=== PATIENT | female | born 1960 | race Caucasian/White ===

== ENCOUNTER 2016-11-22 21:07 | Observation (INO) | payer BC ==
--- NOTE | 2016-11-22 21:10 | PDOC ---
History of Present Illness - General History Source: Patient Exam Limitations: No Limitations <Lauren Chung - Last Filed: 11/22/16 22:05> - General History Source: Patient Exam Limitations: No Limitations <Kylah Rogers - Last Filed: 11/22/16 23:15> - General Chief Complaint: Chest Pain Stated Complaint: CHEST PAIN Time Seen by Provider: 11/22/16 21:09 - History of Present Illness Initial Comments: 11/22/16 22:05 The patient is a 56 year old female, with significant past medical history of HTN, TIA (10 years ago) , who presents today complaining of 6 hours of chest pain. She explains that the pain started as a dull ache in the mid chest. Around 7:30pm, she experienced an episode of crushing chest pain, 8/10 in severity, that made her wince and took her breath away. She notes that the chest pain radiated to deep in her back between her shoulder blades. She notes that she had simultaneous right upper arm soreness and nausea. At this time, the pain has lessened to a 4/10 in severity. She reports that she has severe hypertension, which is being managed with Benicar, Norvasc, and Bystolic. She notes that she also has GERD; however, this chest pain is not similar to GERD pain. Denies headache, lightheadedness. Denies vomiting. Denies SOB, palpitations, sweats. Allergies: none reported Social Hx: No tobacco use. (Lauren Chung) Past History <Lauren Chung - Last Filed: 11/22/16 22:05> <Kylah Rogers - Last Filed: 11/22/16 23:15> - Past Medical History Allergies/Adverse Reactions: Allergies Allergy/AdvReac Type Severity Reaction Status Date / Time No Known Allergies Allergy Unverified 11/22/16 21:12 Home Medications: Ambulatory Orders Amlodipine Besylate [Norvasc -] 10 mg PO DAILY 11/22/16 Hydralazine HCl PRN 11/22/16 Nebivolol HCl [Bystolic] 10 mg PO DAILY 11/22/16 Olmesartan Medoxomil [Benicar (Nf)] 20 mg PO DAILY 11/22/16 Review of Systems <Lauren Chung - Last Filed: 11/22/16 22:05> <Kylah Rogers - Last Filed: 11/22/16 23:15> - Review of Systems Comments:: 11/22/16 22:06 GENERAL/CONSTITUTIONAL: No: fever, chills, weakness, loss of appetite. HEAD, EYES, EARS, NOSE AND THROAT: No: change in vision, ear pain, discharge, sore throat, throat swelling. CARDIOVASCULAR: +chest pain that radiates to the back. No: lightheadedness, palpitations, syncope RESPIRATORY: No: cough, shortness of breath, wheezing, hemoptysis, stridor. GASTROINTESTINAL:+nausea. No: vomiting, abdominal cramping, diarrhea, rectal bleeding, constipation. GENITOURINARY: No: dysuria, hematuria, frequency, urgency, flank pain. MUSCULOSKELETAL: No: neck pain, joint pain, muscle swelling or pain SKIN: No: lesions, pallor, rash or easy bruising. NEUROLOGIC: No: headache, vertigo, paresthesias, weakness (Lauren Chung) *Physical Exam <Lauren Chung - Last Filed: 11/22/16 22:05> <Kylah Rogers - Last Filed: 11/22/16 23:15> - Vital Signs Last Vital Signs Temp Pulse Resp BP Pulse Ox 98.2 F 78 17 193/120 100 11/22/16 21:19 11/22/16 22:30 11/22/16 22:30 11/22/16 22:30 11/22/16 22:30 - Physical Exam Comments: 11/22/16 22:06 GENERAL: The patient is in no acute distress. EYES: PERRLA, EOMI, sclera anicteric, conjunctiva clear. ENT: Ears normal, nares patent, oropharynx clear without exudates. Moist mucous membranes. NECK: Normal range of motion, supple without lymphadenopathy, JVD, or masses. LUNGS: Breath sounds equal, clear to auscultation bilaterally. No wheezes, and no crackles. HEART:Regular rate and rhythm, normal S1 and S2 without murmur, rub or gallop. ABDOMEN: Soft, nontender, normoactive bowel sounds. No guarding, no rebound. EXTREMITIES: Normal range of motion, no edema. No clubbing or cyanosis. No erythema, or tenderness. NEUROLOGICAL: Cranial nerves II through XII grossly intact. Normal speech. No focal neurological deficits. MUSCULOSKELETAL: Back nontender to palpation, no CVA tenderness SKIN: Warm, Dry, normal turgor, no rashes or lesions noted. (Lauren Chung) Heart Score/ECG Review - History History: Moderately suspicious - Electrocardiogram EKG: Normal - Age Age: 45-65 - Risk Factors Risk Factors Heart Score: Yes Hx Hypertension Based on the list above the patient has:: 1-2 risk factors - Troponin Troponin: </= normal limit - Score Heart Score - Total: 3 #1 ECG reviewed & interpreted by me at: 21:54 General ECG Interpretation: Sinus Rhythm, Normal Rate, Normal Intervals, No acute ischemic changes <Kylah Rogers - Last Filed: 11/22/16 23:15> ED Treatment Course - LABORATORY CBC & Chemistry Diagram: 11/22/16 21:36 11/22/16 21:36 <Lauren Chung - Last Filed: 11/22/16 22:05> - LABORATORY CBC & Chemistry Diagram: 11/22/16 21:36 11/22/16 21:36 <Kylah Rogers - Last Filed: 11/22/16 23:15> - ADDITIONAL ORDERS Additional order review: Laboratory Results 11/22/16 11/22/16 11/22/16 21:40 21:36 21:36 INR 0.91 L Sodium 138 Potassium 3.3 L Chloride 103 Carbon Dioxide 25 Anion Gap 10 BUN 17 Creatinine 0.8 Creat Clearance w eGFR > 60 Random Glucose 84 Calcium 9.5 Magnesium 1.9 Total Bilirubin 0.3 AST 18 ALT 16 Alkaline Phosphatase 73 Creatine Kinase 66 Cancelled Troponin I < 0.03 L Cancelled Total Protein 7.2 Albumin 4.3 11/22/16 21:36 RBC 4.80 MCV 92.0 MCHC 34.3 RDW 13.3 MPV 7.9 Neutrophils % 59.9 Lymphocytes % 28.5 Monocytes % 7.0 Eosinophils % 1.3 Basophils % 3.3 H - RADIOLOGY Radiology Studies Ordered: Category Date Time Status CHEST X-RAY PORTABLE* [RAD] Stat Radiology 11/22/16 21:20 Taken - Medications Given in the ED: ED Medications Discontinued Medications Generic Name Dose Route Start Last Admin Trade Name Freq PRN Reason Stop Dose Admin Aspirin 162 mg 11/22/16 21:20 11/22/16 21:36 Asa - PO 11/22/16 21:21 162 mg ONCE ONE Administration Hydralazine HCl 10 mg 11/22/16 22:35 11/22/16 22:53 Apresoline Injection - IVPUSH 11/22/16 22:36 10 mg ONCE ONE Administration Pantoprazole Sodium 40 mg/ 100 mls @ 200 mls/hr 11/22/16 22:03 11/22/16 22:12 Sodium Chloride IVPB 11/22/16 22:32 200 mls/hr ONCE ONE Administration Nitroglycerin 0.4 mg 11/22/16 21:53 11/22/16 21:56 Nitrostat - SL 11/22/16 21:54 0.4 mg ONCE ONE Administration Medical Decision Making <Lauren Chung - Last Filed: 11/22/16 22:05> <Kylah Rogers - Last Filed: 11/22/16 23:15> - Medical Decision Making 11/22/16 21:10 A portion of this note was documented by scribe services under my direction. I have reviewed the details of the note, within reason, and agree with the documentation with the following case summary and management plan written by me. Nursing documentation reviewed and incorporated into medical decision making 11/22/16 21:54 This is a 56-year-old female with a history of hypertension who presents emergency department with a complaint of crushing chest pain. Patient states her symptoms initially began at 4 PM, or mild and escalated over the course of the day. Pt was sexually active with her just before going out to dinner and noted an increase in her chest pressure At dinner, approximately 7:30 she developed severe crushing substernal chest pain. Pain was associated with nausea, no vomiting. No shortness of breath, no palpitations. No exertional symptoms. When the pain was its worse, it was rated 8/10, with radiation to her back between her scapula. Pain is currently a 4/10. No prior episodes like this. She has a history of hypertension for which she takes 3 agents, and hydralazine when necessary. Last stress test was a possibly 3 years ago. Last endoscopy was 3 years ago. Patient has a history of GERD and felt that the symptoms were not consistent with this Differential includes cardiac ischemia, pe, asthma exacerbation, pneumonia, pneumothorax, pleural effusion, costochondritis, pericarditis, GERD. 11/22/16 22:09 Given SNL 0.4 mg Chest pain 2 will give repeat SNL 0.4mg and re assess Will plan to CTA r/o dissection Will admit 11/22/16 22:21 Laboratory Tests 11/22/16 11/22/16 21:36 21:40 WBC 7.5 Hgb 15.1 Hct 44.2 Plt Count 271 Troponin I < 0.03 L I have explained to this patient my concern with her complaint of chest pain radiating to the back, she will need a CTA Pt does not want this done Currently she is chest pain free Troponin is negative He spouse does not this she should stay in the hospital I have explained that she is free to leave but will have to leave against medical advise 11/22/16 22:48 Pt asked again if she would consent for CTA Pt refused (Kylah Rogers) *DC/Admit/Observation/Transfer <Lauren Chung - Last Filed: 11/22/16 22:05> - Discharge Dispostion Admit: Yes <Kylah Rogers - Last Filed: 11/22/16 23:15> Diagnosis at time of Disposition: Chest pain Qualifiers: Chest pain type: unspecified Qualified Code(s): R07.9 - Chest pain, unspecified - Discharge Dispostion Condition at time of disposition: Stable - Referrals Referrals: STAFF,NOT ON [Primary Care Provider] - - Attestations Scribe Attestion: 11/22/16 22:06 Documentation prepared by CHRISTAL Botello, acting as medical office professional instructor for Kylah Rogers MD. (Lauren Chung)
[2016-11-22] MEDS ORDERED: ASPIRIN 81 MG CHEWABLE TABLETS PO ONE (21:20)
[2016-11-22 21:21] VITALS: BMI 21.7
[2016-11-22] MEDS ORDERED: ASPIRIN 81 MG CHEWABLE TABLETS ONE (21:24)
[2016-11-22 21:47] LABS: BASOPHIL 3.3 % (0-2.0); EOSINOPHIL 1.3 % (0-4.5); MCH 31.5 pg (25.7-33.7); MCHC 34.3 g/dl (32.0-36.0); MEAN PLT VOLUME 7.9 fl (7.5-11.1); NEUTROPHILS 59.9 % (42.8-82.8); PLATELET COUNT 271 K/MM3 (134-434); RDW 13.3 % (11.6-15.6); WHITE BLOOD COUNT 7.5 K/mm3 (4.0-10.8)
[2016-11-22] MEDS ORDERED: NITROGLYCERIN SUBLINGUAL 1/150 0.4 MG TAB SL ONE ×2 (21:53→22:08)
[2016-11-22] MEDS ORDERED: NITROGLYCERIN SUBLINGUAL 1/150 0.4 MG TAB ONE ×2 (21:55→22:13)
[2016-11-22 22:00] LABS: INR 0.91 (0.82-1.09); PROTHROMBIN TIME (PATIENT) 10.2 SEC (10.2-13.0)
[2016-11-22 22:02] LABS: CPK 66 IU/L (26-192)
[2016-11-22 22:03] LABS: ALBUMIN 4.3 g/dl (3.5-5.0); ALK PHOS 73 U/L (32-92); ANION GAP 10 (8-16); BILIRUBIN,TOTAL 0.3 mg/dl (0.2-1.0); CALCIUM 9.5 mg/dl (8.4-10.2); CO2 25 mmol/L (22-28); CREATININE 0.8 mg/dl (0.6-1.3); GLUCOSE,RANDOM 84 mg/dl (74-106); MAGNESIUM 1.9 mg/dL (1.8-2.4); SGOT/AST 18 U/L (10-42); SGPT/ALT 16 U/L (10-40); TOT PROT 7.2 g/dl (6.4-8.3)
[2016-11-22] MEDS ORDERED: PANTOPRAZOLE SODIUM 40 MG in SODIUM CHLORIDE 100 ML IVPB ONE (22:03)
[2016-11-22] MEDS ORDERED: PANTOPRAZOLE SODIUM 40 MG VIAL ONE (22:08)
[2016-11-22 22:15] LABS: TROPONIN I (DFP) < 0.03 ng/ml (0.03-0.50)
[2016-11-22] MEDS ORDERED: hydrALAZINE HCL 10 MG TABLET PO ONE (22:34)
[2016-11-22] MEDS ORDERED: hydrALAZINE HCL 20 MG/ML VIAL IVPUSH ONE (22:35)
[2016-11-22] MEDS ORDERED: hydrALAZINE HCL 20 MG/ML VIAL ONE (22:52)
--- NOTE | 2016-11-22 23:52 | HP ---
CHIEF COMPLAINT: Chest Pain PCP: None HISTORY OF PRESENT ILLNESS: This is a pleasant 56 y/o woman with a past medical history of Hypertension (10 years ago), TIA (10 yrs ago, no residual deficits), GERD, Hypercholesterolemia ( no meds). who presents to the emergency department with chest pain since 4pm this evening. The patient reports having crushing substernal chest pain post coital, radiating to her back, between her shoulder blades, with nausea. She reports while at dinner, the pain became a dull ache that was constant- which she attributed to possible "GERD". Patient denies fever, chills, cough, SOB, dizziness, FAY, AP, V/D, constipation,. dysuria. Patient reports having a significant familial Cardiac history. 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 Family History: Father: Prolonged QT Syndrome Mother: Sick sinus Syndrome Sister: Sudden Cardiac Aunt: Breast Ca Allergies No Known Allergies Allergy (Unverified 11/22/16 21:12) HOME MEDICATIONS: Home Medications Medication Instructions Recorded Amlodipine Besylate [Norvasc -] 10 mg PO DAILY 11/22/16 Hydralazine HCl PRN 11/22/16 Nebivolol HCl [Bystolic] 10 mg PO DAILY 11/22/16 Olmesartan Medoxomil [Benicar (Nf)] 20 mg PO DAILY 11/22/16 REVIEW OF SYSTEMS CONSTITUTIONAL: Absent: fever, chills, diaphoresis, generalized weakness, malaise, loss of appetite, weight change HEENT: Absent: rhinorrhea, nasal congestion, throat pain, throat swelling, difficulty swallowing, mouth swelling, ear pain, eye pain, visual changes CARDIOVASCULAR: chest pain Absent: chest pain, syncope, palpitations, irregular heart rate, lightheadedness , peripheral edema RESPIRATORY: Absent: cough, shortness of breath, dyspnea with exertion, orthopnea, wheezing, stridor, hemoptysis GASTROINTESTINAL: nausea Absent: abdominal pain, abdominal distension, vomiting, diarrhea, constipation, melena, hematochezia GENITOURINARY: Absent: dysuria, frequency, urgency, hesitancy, hematuria, flank pain, genital pain MUSCULOSKELETAL: back pain Absent: myalgia, arthralgia, joint swelling, neck pain SKIN: Absent: rash, itching, pallor HEMATOLOGIC/IMMUNOLOGIC: Absent: easy bleeding, easy bruising, lymphadenopathy, frequent infections ENDOCRINE: Absent: unexplained weight gain, unexplained weight loss, heat intolerance, cold intolerance NEUROLOGIC: Absent: headache, focal weakness or paresthesias, dizziness, unsteady gait, seizure, mental status changes, bladder or bowel incontinence PSYCHIATRIC: Absent: anxiety, depression, suicidal or homicidal ideation, hallucinations. PHYSICAL EXAMINATION Vital Signs - 24 hr 11/22/16 11/22/16 11/22/16 21:19 21:48 22:14 Temperature 98.2 F Pulse Rate 120 H Pulse Rate [ 92 H 75 Apical] Respiratory 16 18 18 Rate Blood Pressure 195/130 Blood Pressure 186/121 147/105 [Right Arm] O2 Sat by Pulse 99 99 100 Oximetry (%) 11/22/16 11/22/16 11/22/16 22:30 23:15 23:46 Temperature 97.9 F Pulse Rate 91 H Pulse Rate [ 78 99 H Apical] Respiratory 17 16 18 Rate Blood Pressure 163/90 Blood Pressure 193/120 181/99 [Right Arm] O2 Sat by Pulse 100 99 99 Oximetry (%) GENERAL: Awake, alert, and fully oriented, in no acute distress. HEAD: Normal with no signs of trauma. EYES: Pupils equal, round and reactive to light, extraocular movements intact, sclera anicteric, conjunctiva clear. No lid lag. EARS, NOSE, THROAT: Ears normal, nares patent, oropharynx clear without exudates. Moist mucous membranes. NECK: Normal range of motion, supple without lymphadenopathy, JVD, or masses. LUNGS: Breath sounds equal, clear to auscultation bilaterally. No wheezes, and no crackles. No accessory muscle use. HEART: Regular rate and rhythm, normal S1 and S2 without murmur, rub or gallop. ABDOMEN: Soft, nontender, not distended, normoactive bowel sounds, no guarding, no rebound, no masses. No hepatomegaly or splenomegaly. MUSCULOSKELETAL: Normal range of motion at all joints. No bony deformities or tenderness. No CVA tenderness. UPPER EXTREMITIES: 2+ pulses, warm, well-perfused. No cyanosis. No clubbing. No peripheral edema. LOWER EXTREMITIES: 2+ pulses, warm, well-perfused. No calf tenderness. No peripheral edema. NEUROLOGICAL: Cranial nerves II-XII intact. Normal speech. Normal gait. PSYCHIATRIC: Cooperative. Good eye contact. Appropriate mood and affect. SKIN: Warm, dry, normal turgor, no rashes or lesions noted, normal capillary refill. Laboratory Results - last 24 hr 11/22/16 11/22/16 11/22/16 21:36 21:36 21:36 WBC 7.5 RBC 4.80 Hgb 15.1 Hct 44.2 MCV 92.0 MCH 31.5 MCHC 34.3 RDW 13.3 Plt Count 271 MPV 7.9 Neutrophils % 59.9 Lymphocytes % 28.5 Monocytes % 7.0 Eosinophils % 1.3 Basophils % 3.3 H INR 0.91 L Sodium 138 Potassium 3.3 L Chloride 103 Carbon Dioxide 25 Anion Gap 10 BUN 17 Creatinine 0.8 Creat Clearance w eGFR > 60 Random Glucose 84 Calcium 9.5 Magnesium 1.9 Total Bilirubin 0.3 AST 18 ALT 16 Alkaline Phosphatase 73 Creatine Kinase Cancelled Troponin I Cancelled Total Protein 7.2 Albumin 4.3 11/22/16 21:40 WBC RBC Hgb Hct MCV MCH MCHC RDW Plt Count MPV Neutrophils % Lymphocytes % Monocytes % Eosinophils % Basophils % INR Sodium Potassium Chloride Carbon Dioxide Anion Gap BUN Creatinine Creat Clearance w eGFR Random Glucose Calcium Magnesium Total Bilirubin AST ALT Alkaline Phosphatase Creatine Kinase 66 Troponin I < 0.03 L Total Protein Albumin ASSESSMENT/PLAN: This is a 56 y/o woman with a PMHx of: HTN, TIA (10 yrs ago), Hypercholesterolemia (no med). Placed on Tele Observation Chest Pain r/o ACS, Hypertensive Urgency for further evaluation of their emergent condition. Problem List - Problem (1) Chest pain Assessment/Plan: - r/o ACS - HEART Score 4 - Continue cardiac monitoring - ASA, Ntg sl given in ED - Cardiac Enzyme neg x1 - Serial Enzymes x2 - EKG- NSR no other study avail to compare - Repeat EKG in am - Appreciate Cardiology Consult - Continue Asa, BB - Lipid Panel, Hgb A1C in am - Monitor BMP - Echo - Stress Test Code(s): R07.9 - CHEST PAIN, UNSPECIFIED Qualifiers: Chest pain type: unspecified Qualified Code(s): R07.9 - Chest pain, unspecified (2) Hypertensive urgency Assessment/Plan: - Likely secondary to ACS - Initial BP 193/120~160/90 - Continue cardiac monitoring - No indication of end organ damage - Hydralazine, Ntg given in ED - Monitor renal function - Continue Norvasc, Bystolic, Benicar - Hydralazine prn Code(s): I16.0 - HYPERTENSIVE URGENCY (3) Hypokalemia Assessment/Plan: - K 3.3 - Will give Kcl Code(s): E87.6 - HYPOKALEMIA (4) DVT prophylaxis Assessment/Plan: - OOB - SCDs - Consider AC if LOS > 48 hrs Code(s): [id number] - Visit type - Emergency Visit Emergency Visit: Yes ED Registration Date: 11/22/16 Care time: The patient presented to the Emergency Department on the above date and was hospitalized for further evaluation of their emergent condition. - New Patient This patient is new to me today: Yes Date on this admission: 11/22/16 - Critical Care Critical Care patient: No
[2016-11-23] MEDS ORDERED: POTASSIUM CHLORIDE TABS 20 MEQ TABLET.ER (FP) PO ONE (00:13)
[2016-11-23] MEDS ORDERED: NITROGLYCERIN SUBLINGUAL 1/150 0.4 MG TAB SL PRN (01:50)
[2016-11-23 05:45] LABS: TROPONIN I (DFP) < 0.03 ng/ml (0.03-0.50)
[2016-11-23 05:46] LABS: CPK 53 IU/L (26-192)
--- NOTE | 2016-11-23 07:54 | CON.CARD ---
Consult Consult Specialty:: cardiology Referred by:: hospitalist Reason for Consultation:: cp - History of Present Illness Chief Complaint: cp History of Present Illness: 56 yo female here with cp. lives in [place], visiting boyfriend here. yest around 4pm began noticing substernal discomfort which was persistent, non- radiating and not assctd with sob, diaph, LH. mild nausea noted with that. not positional/pleuritic. it persisted all day, went out to dinner with BF and the pain intensified. around 7:30 pm it became intense "crushing" feeling radiating through to mid- scapular region, no "tearing" sensation. this subsided on its own after approx 15 min. but the pain did not eventually resolve until some point last night after arrived in ER. then returned over night transiently. never had this before. not like her GERD sx's (which are fire-like burning in epigastrium). 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 ...: No - Alcohol/Substance Use Hx Alcohol Use: Yes (OCCASIONAL) - Smoking History Smoking history: Never smoked Home Medications - Allergies Allergies/Adverse Reactions: Allergies Allergy/AdvReac Type Severity Reaction Status Date / Time No Known Allergies Allergy Unverified 11/22/16 21:12 - Home Medications Home Medications: Ambulatory Orders Amlodipine Besylate [Norvasc -] 10 mg PO DAILY 11/22/16 Hydralazine HCl PRN 11/22/16 Nebivolol HCl [Bystolic] 10 mg PO DAILY 11/22/16 Olmesartan Medoxomil [Benicar (Nf)] 20 mg PO DAILY 11/22/16 Review of Systems - Review of Systems Constitutional: denies: Chills, Fever Eyes: denies: Eye Pain HENT: denies: Nasal Congestion Neck: denies: Stiffness Cardiovascular: denies: Palpitations Respiratory: denies: Orthopnea, PND Gastrointestinal: denies: Diarrhea, Rectal Bleeding Genitourinary: denies: Burning, Hematuria Musculoskeletal: denies: Muscle Pain Integumentary: denies: Rash Neurological: denies: Numbness, Seizure, Syncope Endocrine: denies: Excessive Sweating Hematology/Lymphatic: denies: Excessive Bleeding Vital Signs: Vital Signs Temperature 97.7 F 11/23/16 06:00 Pulse Rate 87 11/23/16 06:00 Respiratory Rate 18 11/23/16 06:02 Blood Pressure 150/105 11/23/16 06:02 O2 Sat by Pulse Oximetry (%) 97 11/23/16 06:00 Constitutional: Yes: Well Nourished, No Distress Eyes: No: Sclera Icterus HENT: No: Nasal Congestion Neck: No: Decreased ROM Respiratory: Yes: CTA Bilaterally. No: Accessory Muscle Use, Rales, Wheezes Gastrointestinal: Yes: Normal Bowel Sounds. No: Distention, Hepatomegaly, Palpable Mass, Tenderness Cardiovascular: Yes: Regular Rate and Rhythm JVD: No Carotid Bruit: No PMI: Non-Displaced Heart Sounds: Yes: S1, S2. No: Gallop Murmur: No: Systolic Murmur, Diastolic Murmur Musculoskeletal: Yes: Other (No kyphosis) Extremities: No: Cold, Cyanosis Edema: No Peripheral Pulses: 2+ Left Carotid, 2+ Right Carotid, 2+ Left Doralis Pedis, 2+ Right Dorsalis Pedis Integumentary: No: Jaundice Neurological: Yes: Alert, Oriented (x3) Psychiatric: No: Agitated - Other Data Labs, Other Data: INR, PTT INR 0.91 (0.82-1.09) L 11/22/16 21:36 Troponin, BNP 11/23/16 01:26 Troponin I < 0.03 L Troponin, BNP 11/23/16 01:26 Troponin I < 0.03 L Imaging - Results Chest X-ray: Report Reviewed, Image Reviewed Assessment/Plan EKG 11/22: NSR, nl axis, nl intervals incl QT; no path q's; NSST-T V4-5 EKG 11/23: no change (QTc manually approx 428 msec) CXR: clear lungs and pleura; no mediastinum widening; ? RA enlargement telem: NSR with APCs, no events chest pain: -sx description not likely to represent m-skel or GERD etiology -? related to uncontrolled HTN, though pt describes typical hi bp sx's are very different (i.e. head pressure, which she did not have yesterday) -? related to chronically high mental stress (stressful job) with nonspecific cp syndrome -history is concerning for possible unstable angina in pt with uncontrolled HTN and prior TIA -ecg x2 no ischemic changes -troponins neg thus far (only 4 hrs apart), f/u this am's value -rec persantine nuclear stress test in am -start ASA, cont bystolic, defer statin for now HTN: -not well controlled, with both sbp and dbp moderate to severely elevated at times -? what is pt's baseline bp--pt states usually 130s/80s -? anxiety contributing to present readings -did not yet receive am meds--observe bp trend HPL: -managed with diet alone -she says was high at time of TIA many yrs ago, now normal without meds family h/o congenital long QT syndrome: -her ECG with normal QT interval, her father had + gene test and pt has been tested and is negative she says (reliable historian) -no personal h/o unexplained syncope or VT
[2016-11-23 08:36] LABS: BASOPHIL 1.4 % (0-2.0); EOSINOPHIL 1.4 % (0-4.5); MCH 30.3 pg (25.7-33.7); MCHC 32.8 g/dl (32.0-36.0); MEAN CELL VOLUME 92.4 fl (80-96); MEAN PLT VOLUME 8.5 fl (7.5-11.1); NEUTROPHILS 54.9 % (42.8-82.8); PLATELET COUNT 245 K/MM3 (134-434); RDW 13.4 % (11.6-15.6); WHITE BLOOD COUNT 6.4 K/mm3 (4.0-10.8)
[2016-11-23 08:54] LABS: ANION GAP 8 (8-16); CALCIUM 9.1 mg/dl (8.4-10.2); CO2 23 mmol/L (22-28); CPK 47 IU/L (26-192); CREATININE 0.7 mg/dl (0.6-1.3); GLUCOSE,RANDOM 78 mg/dl (74-106); PHOSPHOROUS 3.6 mg/dl (2.5-4.6)
[2016-11-23 08:59] LABS: CHOLESTEROL 173 mg/dl
[2016-11-23 09:35] LABS: TROPONIN I (DFP) < 0.03 ng/ml (0.03-0.50)
[2016-11-23] MEDS ORDERED: VALSARTAN 160 MG TABLET (UD) PO SCH (10:00)
[2016-11-23] MEDS: VALSARTAN 160 MG TABLET (UD) PO SCH (10:13)
[2016-11-23] MEDS: NEBIVOLOL 10 MG TABLET (FP) PO SCH (10:13)
[2016-11-23] MEDS: amLODIPine BESYLATE 10 MG TABLET (FP) PO SCH (10:13)
[2016-11-23] MEDS: ASPIRIN 81 MG CHEWABLE TABLETS PO SCH (10:13)
--- NOTE | 2016-11-23 14:35 | PN ---
Physical Exam: SUBJECTIVE: Patient seen and examined at bedside. Chest pain is resolved. Resolved headache. OBJECTIVE: Vital Signs Period Temp Pulse Resp BP Sys/Treviño Pulse Ox Last 24 Hr 97.7 F-98.0 F 85-99 18-18 150-184/90-111 96-99 GENERAL: The patient is awake, alert, and fully oriented, in no acute distress. LUNGS: Breath sounds equal, clear to auscultation bilaterally, no wheezes, no crackles, no accessory muscle use. HEART: Regular rate and rhythm, S1, S2 without murmur, rub or gallop. Telemetry reviewed. No events or ectopy noted. ABDOMEN: Soft, nontender, nondistended, normoactive bowel sounds, no guarding, no rebound. EXTREMITIES: 2+ pulses, warm, well-perfused, no edema. NEUROLOGICAL: Cranial nerves II through XII grossly intact. Normal speech, gait not observed. PSYCH: Normal mood, normal affect. SKIN: Warm, dry, normal turgor, no rashes or lesions noted Laboratory Results - last 24 hr 11/23/16 11/23/16 11/23/16 01:26 06:00 06:00 WBC 6.4 RBC 4.71 Hgb 14.3 Hct 43.6 MCV 92.4 MCH 30.3 MCHC 32.8 RDW 13.4 Plt Count 245 MPV 8.5 Neutrophils % 54.9 Lymphocytes % 33.6 Monocytes % 8.7 Eosinophils % 1.4 Basophils % 1.4 Sodium 137 Potassium 4.0 D Chloride 106 Carbon Dioxide 23 Anion Gap 8 BUN 14 Creatinine 0.7 Random Glucose 78 Hemoglobin A1c % Calcium 9.1 Phosphorus 3.6 Creatine Kinase 53 47 Troponin I < 0.03 L < 0.03 L Triglycerides Cholesterol Total LDL Cholesterol HDL Cholesterol 11/23/16 11/23/16 06:00 06:00 WBC RBC Hgb Hct MCV MCH MCHC RDW Plt Count MPV Neutrophils % Lymphocytes % Monocytes % Eosinophils % Basophils % Sodium Potassium Chloride Carbon Dioxide Anion Gap BUN Creatinine Random Glucose Hemoglobin A1c % 5.7 Calcium Phosphorus Creatine Kinase Troponin I Triglycerides 84 Cholesterol 173 Total LDL Cholesterol 97 HDL Cholesterol 59 Active Medications Generic Name Dose Route Start Last Admin Trade Name Freq PRN Reason Stop Dose Admin Amlodipine Besylate 10 mg 11/23/16 10:00 11/23/16 10:13 Norvasc - PO 10 mg DAILY LORENE Administration Aspirin 81 mg 11/23/16 10:00 11/23/16 10:13 Asa - PO 81 mg DAILY LORENE Administration Nebivolol 10 mg 11/23/16 10:00 11/23/16 10:13 Bystolic - PO 10 mg DAILY LORENE Administration Nitroglycerin 0.4 mg 11/23/16 01:50 Nitrostat - SL Q5M PRN FOR CHEST PAIN Valsartan 320 mg 11/23/16 10:00 11/23/16 10:13 Diovan - PO 320 mg DAILY LORENE Administration ASSESSMENT/PLAN: A: 56yo woman with PMH HTN with resolved chest pain and HTN urgency P: 1. ACS - telemetry - trop (-) x3 - ASA - Bystolic - NTG prn - avoid caffeine - Stress test- pending - echo- pending - cholesterol ratio 2.9- low risk for cardiovascular disease 2. Hypertensive urgency - poorly controlled - Bystolic - Valsartan - Norvasc - Hydralazine 10mg now 3. Hypokalemia - resolved - BMP in AM 4. F/E/N - Low Na diet - replete prn 5. PPX - OOB Dispo- requires observation for her acute medical conditions Visit type - Emergency Visit Emergency Visit: Yes ED Registration Date: 11/22/16 Care time: The patient presented to the Emergency Department on the above date and was hospitalized for further evaluation of their emergent condition. - New Patient This patient is new to me today: No - Critical Care Critical Care patient: No
[2016-11-23] MEDS ORDERED: hydrALAZINE HCL 10 MG TABLET PO ONE (15:10)
[2016-11-24 09:08] LABS: BASOPHIL 0.7 % (0-2.0); EOSINOPHIL 1.9 % (0-4.5); MCH 30.6 pg (25.7-33.7); MCHC 33.7 g/dl (32.0-36.0); MEAN CELL VOLUME 90.9 fl (80-96); MEAN PLT VOLUME 8.4 fl (7.5-11.1); NEUTROPHILS 61.9 % (42.8-82.8); PLATELET COUNT 270 K/MM3 (134-434); RDW 13.7 % (11.6-15.6); WHITE BLOOD COUNT 5.4 K/mm3 (4.0-10.8)
[2016-11-24 09:10] LABS: ANION GAP 6 (8-16); CALCIUM 9.4 mg/dl (8.4-10.2); CO2 23 mmol/L (22-28); CREATININE 0.8 mg/dl (0.6-1.3); GLUCOSE,RANDOM 89 mg/dl (74-106)
[2016-11-24] MEDS ORDERED: WATER IVPB ONE (10:00)
[2016-11-24] MEDS ORDERED: DEXTROSE 5% IVPB ONE (10:00)
[2016-11-24] MEDS ORDERED: DIPYRIDAMOLE STRESS TEST IVPB ONE (10:00)
[2016-11-24] MEDS: amLODIPine BESYLATE 10 MG TABLET (FP) PO SCH (10:23)
[2016-11-24] MEDS: VALSARTAN 160 MG TABLET (UD) PO SCH (10:23)
[2016-11-24] MEDS: NEBIVOLOL 10 MG TABLET (FP) PO SCH (11:30)
--- NOTE | 2016-11-24 14:10 | PN ---
Progress Note (short form) - Note Progress Note: patient taken to [facility] for stress test prior to evaluation. Awaiting results for dispo.
[2016-11-24 14:36] VITALS: BP 141/95; PULSE 72; TEMP 98.8
[2016-11-24] MEDS: ASPIRIN 81 MG CHEWABLE TABLETS PO SCH (15:38)
--- NOTE | 2016-11-24 23:56 | DS ---
Physical Exam: SUBJECTIVE: Patient seen and examined at bedside. OBJECTIVE: Vital Signs Period Temp Pulse Resp BP Sys/Treviño Pulse Ox Last 24 Hr 98.3 F-98.8 F 72-80 16-18 134-180/89-130 98-99 PHYSICAL EXAM GENERAL: The patient is awake, alert, and fully oriented, in no acute distress. LUNGS: Breath sounds equal, clear to auscultation bilaterally, no wheezes, no crackles, no accessory muscle use. HEART: Regular rate and rhythm, S1, S2 without murmur, rub or gallop. Telemetry reviewed. No events or ectopy noted. ABDOMEN: Soft, nontender, nondistended, normoactive bowel sounds, no guarding, no rebound. EXTREMITIES: 2+ pulses, warm, well-perfused, no edema. NEUROLOGICAL: Cranial nerves II through XII grossly intact. Normal speech, gait not observed. PSYCH: Normal mood, normal affect. SKIN: Warm, dry, normal turgor, no rashes or lesions noted LABS Laboratory Results - last 24 hr 11/24/16 11/24/16 07:00 07:00 WBC 5.4 RBC 5.06 Hgb 15.5 H Hct 46.0 H MCV 90.9 MCH 30.6 MCHC 33.7 RDW 13.7 Plt Count 270 MPV 8.4 Neutrophils % 61.9 Lymphocytes % 27.4 Monocytes % 8.1 Eosinophils % 1.9 Basophils % 0.7 Sodium 136 Potassium 4.1 Chloride 107 Carbon Dioxide 23 Anion Gap 6 L BUN 14 Creatinine 0.8 Random Glucose 89 Calcium 9.4 HOSPITAL COURSE: Date of Admission:11/22/16 Date of Discharge: 11/24/16 Minutes to complete discharge: 35 Discharge Summary Reason For Visit: CHEST PAIN Hospital Course: This is a pleasant 56 y/o woman with a past medical history of Hypertension (10 years ago), TIA (10 yrs ago, no residual deficits), GERD, Hypercholesterolemia ( no meds). who presented to the emergency department with chest pain since 4pm this evening. The patient reported having crushing substernal chest pain post coital, radiating to her back, between her shoulder blades, with nausea. She reported while at dinner, the pain became a dull ache that was constant- which she attributed to possible "GERD". Patient denied fever, chills, cough, SOB, dizziness, FAY, AP, V/D, constipation,. dysuria. Patient reported having a significant familial Cardiac history. 1. ACS - telemetry - trop (-) x3 - continue ASA - Stress test (-). No EKG changes during exam. Normal blood pressure response. - echo- EF-66%, Normal SPECT scan - cholesterol ratio 2.9- low risk for cardiovascular disease 2. 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 Hypokalemia - resolved with 40mEq PO Condition: Stable - Instructions Diet, Activity, Other Instructions: FOLLOW UP WITH PRIMARY CARE PHYSICIAN IN 5 DAYS FOLLOW UP WITH DOPE FIRER IN 1 WEEK WELL BALANCED LOW SODIUM DIET NO CHANGES IN MEDICATIONS Referrals: Moose Estrada MD [Staff Physician] - 1 Week STAFF,NOT ON [Primary Care Provider] - 11/28/16 Disposition: HOME - Home Medications Comprehensive Discharge Medication List: Ambulatory Orders Amlodipine Besylate [Norvasc -] 10 mg PO DAILY 11/22/16 Hydralazine HCl PRN 11/22/16 Nebivolol HCl [Bystolic] 10 mg PO DAILY 11/22/16 Olmesartan Medoxomil [Benicar (Nf)] 20 mg PO DAILY 11/22/16 This patient is new to me today: No Emergency Visit: Yes ED Registration Date: 11/22/16 Care time: The patient presented to the Emergency Department on the above date and was hospitalized for further evaluation of their emergent condition. Critical Care patient: No - Discharge Referral Referred to [facility] Med P.C.: No
--- NOTE | 2016-11-25 14:06 | EKG ---
Test Reason : Blood Pressure : / mmHG Vent. Rate : 082 BPM Atrial Rate : 082 BPM P-R Int : 132 ms QRS Dur : 072 ms QT Int : 406 ms P-R-T Axes : 041 066 034 degrees QTc Int : 474 ms SINUS RHYTHM WITH PREMATURE ATRIAL COMPLEXES OTHERWISE NORMAL ECG WHEN COMPARED WITH ECG OF 22-NOV-2016 21:29, PREMATURE ATRIAL COMPLEXES ARE NOW PRESENT CLINICAL CORRELATION IS RECOMMENDED Confirmed by GRUPO RODRIGUEZ MD ([id number] on 11/25/2016 2:06:34 PM Referred By: DR BOONE Confirmed By:GRUPO RODRIGUEZ MD
--- NOTE | 2016-11-25 14:09 | EKG ---
Test Reason : Blood Pressure : / mmHG Vent. Rate : 088 BPM Atrial Rate : 088 BPM P-R Int : 130 ms QRS Dur : 070 ms QT Int : 356 ms P-R-T Axes : 053 069 055 degrees QTc Int : 430 ms SUBOPTIMAL TRACING, BASE LINE ARTIFACTS ATRIAL RHYTHM IS UNCERTAIN, PROBABLE SINUS RTYTHM. REPEAT EKG IF CLINICALLY INDICATED NO PREVIOUS ECGS AVAILABLE Confirmed by GRUPO RODRIGUEZ MD ([id number] on 11/25/2016 2:09:31 PM Referred By: Confirmed By:GRUPO RODRIGUEZ MD
== END 2016-11-24 18:43 | disposition home or self-care (01) ==
LOC: FER 21:07 → FM/S 23:21
PROVIDERS: ADMIT Internal Medicine; ATTEND Nurse Practitioner Family
PROC: 3E033GC Introduction of Other Therapeutic Substance into Peripheral Vein, Percutaneous Approach (ICD-10-PCS; principal; 2016-11-22)
DX: R07.9 Chest pain, unspecified (principal); I24.9 Acute ischemic heart disease, unspecified; E87.6 Hypokalemia; I16.0 Hypertensive urgency; I10 Essential (primary) hypertension; K21.9 Gastro-esophageal reflux disease without esophagitis; Z86.73 Personal history of transient ischemic attack (TIA), and cerebral infarction without residual deficits
CPT/HCPCS: 36415; 71010-TC; 78452-TC; 80048; 80053; 80061; 83036; 83735; 84100; 84484; 84703; 85025; 85610; 93005; 93017; 93306-TC; 99283-25; A9502; G0378